=== PATIENT | male | born 1980 | race Caucasian/White ===

== ENCOUNTER 2020-09-01 01:25 | Emergency (ER) | payer BC ==
[2020-09-01 01:32] VITALS: BP 140/96
[2020-09-01] MEDS ORDERED: EPIPEN 2-PAK1 MG/ML IM (01:44)
[2020-09-01] MEDS ORDERED: PREDNISONE50 MG PO (02:52)
[2020-09-01 03:02] VITALS: PULSE 72
== END 2020-09-01 03:06 | disposition home or self-care (01) ==
LOC: COL.ER 01:25
DX: T63.441A Toxic effect of venom of bees, accidental (unintentional), initial encounter (principal)
CPT/HCPCS: J0171; J1885; J7512